=== PATIENT | female | born 1995 | race Caucasian/White ===

== ENCOUNTER 2023-02-08 10:38 | Emergency (ER) | payer OTHER, SELFPAY ==
[2023-02-08 10:49] VITALS: BP 111/72; PULSE 81; RESP 16; TEMP 36.7; O2SAT 97; BMI 26.3
--- NOTE | 2023-02-08 11:13 | XR_ITS ---
WS: [id number] XR ankle LT min 3V* [id number] REASON FOR EXAM: fall, injury FINDINGS: Moderate soft tissue swelling over the lateral malleolus. No fracture identified. Joint spaces of the left ankle are intact and well preserved. XR/XR ankle LT min 3V* [id number] IMPRESSION: Soft tissue swelling over the lateral malleolus with no acute bone or joint abn ormality identified.
--- NOTE | 2023-02-08 13:49 | ED_ITS ---
HPI - Extremity Problem General: Chief complaint: Extremity Injury, Lower Stated complaint: left ankle pain Time Seen by Provider: 02/08/23 11:10 Source: patient Mode of arrival: wheelchair Limitations: no limitations History of Present Illness: Patient presents to the emergency department today accompanied by family for evaluation treatment of multiple injuries sustained after falling last night. Patient admits she had been drinking some alcohol and, while trying to walk up a hill and wet crocs slipped on some uneven rocks causing her right ankle to roll and she to fall forward. Patient has several superficial abrasions and bruises noted to the anterior knees bilaterally and anterior shins. Patient is complaining of left lateral ankle pain with decreased range of motion and minimal to no weightbearing capabilities. She states she did not hit her head when she fell. Review of Systems General: Reports: 10 or more systems reviewed and unremarkable except in HPI and below Musc: Reports: extremity pain, joint pain, joint swelling, joint stiffness and limited range of motion Physical Exam Const: COMMON NORMALS: no acute distress, patient oriented x3 and alert HENMT: COMMON NORMALS: normocephalic, atraumatic and hearing grossly normal bilaterally HEAD & SCALP: normocephalic and atraumatic Eye: COMMON NORMALS: Equal, round and reactive pupils present, EOMs intact bilaterally and conjunctivae normal CONJUNCTIVA: Yes conjunctivae normal PUPIL: Yes Equal, round and reactive pupils present Neck/C-Spine: COMMON NORMALS: full ROM and no JVD Lymph: LYMPHATIC: no lymphadenopathy noted Resp: COMMON NORMALS: normal respiratory effort, No retractions and No use of accessory muscles Cardio: COMMON NORMALS: no JVD and regular rate RATE: regular rate Extremity: NARRATIVE EXTREMITY EXAM: Patient has obvious swelling of the left lateral malleolus. She is tender to palpation to the distal fib without particular tenderness on the proximal fifth metatarsal. No significant bruising in this area but patient does have 1 or 2 small areas of bruising noted to the dorsum of the foot. Patient is able to move the toes on the left foot. She actually demonstrates ability to flex and extend and demonstrate some inversion and eversion of the joint though she indicates pain. Patient with generalized discomfort to the anterior right knee is on palpation without any specific patellar or tibial plateau tenderness. Patient demonstrates flexion extension capabilities of these joints. Neuro: COMMON NORMALS: patient oriented x3 SENSORIUM/ORIENTATION: Yes alert Psych: COMMON NORMALS: mental status grossly normal, Normal thought process present, cooperative and normal affect THOUGHT PROCESS: Normal thought pro cess present Skin: COMMON NORMALS: no rashes or lesions noted and turgor normal NARRATIVE SKIN EXAM: Patient has a couple superficial abrasions noted to the anterior knees without signs of infection or bleeding. Patient has multiple areas of bruising ranging from 1 cm in diameter to up to 3 cm in diameter. GENERAL SKIN EXAM: no rashes or lesions noted and turgor normal Course Vital Signs: Vital signs: Vital Signs Temperature 98.0 F 02/08/23 10:49 Pulse Rate 81 02/08/23 10:49 Respiratory Rate 16 02/08/23 10:49 Blood Pressure 111/72 02/08/23 10:49 Pulse Oximetry 97 02/08/23 10:49 Oxygen Delivery Me thod 02/08/23 10:49 MDM - Extremity (Nontraumatic) Medical Decision Making Patient presents emergency department today for evaluation treatment of left lateral ankle pain. Patient is sustained multiple injuries from her fall last night but, was mostly concerned as she was unable to bear weight and ambulate on the ankle. X-rays negative for any signs of acute fracture but, with the swelling did discuss ankle sprain and need for healing. Patient was put into a ankle brace and given crutches with instructions to remain nonweightbearing for 3 days. She is to continue wearing the brace for 1 more week and should be seen and reevaluated if she is still unable to bear weight and ambulate more comfortably as she may require repeat films to evaluate for potential hairline fractures. Went over at home RICE therapy recommendations. Differential Diagnosis Likely cellulitis (Ankle fracture, ankle sprain, knee contusion, metatarsal fracture) Lab Data Radiology Impressions Ankle X-Ray 02/08/23 11:13 IMPRESSION: Soft tissue swelling over the lateral malleolus with no acute bone or joint abnormality identified. Discharge Plan Discharge Patient Disposition: Home Clinical Impression: Ankle sprain and strain, Contusion, multiple sites Condition: Stable Discharge Orders: Discharge ED (Routine); Ordered 02/08/23 Ordered By: Sandie Vasquez Discharge Diet: Usual diet Discharge Activity: Limit activity as instructed Patient Instructions: Ankle Sprain (ED) Activity Restrictions/Additional Instructions: X-ray today does not show any signs of acute fracture however, with a significant amount of swelling in the location of your injury you most likely have stretched and injured the connective tissues to your ankle. As we discussed, I would like you to wear your ankle brace and use crutches for all weightbearing activity for the next 3 days. After that time, I would like you to continue wearing your ankle brace until next Wednesday. However, if you are having significant improvement and wish to remove your brace for the on Wednesday, you may attempt ambulation if you wish. Until then, I do recommend keeping your foot up and elevated as often as possible. Apply ice to the area of swelling for 15 to 20 minutes at a time. Use Tylenol and ibuprofen for your discomfort. If in 1 week you are not noticing significant improvement with the conservative management of crutches, bracing, and icing, we do recommend you be seen and reevaluated again as you may require repeat films to evaluate for potential hairline fractures. Coding Level of Care Code ED Orthodontic Lab Technician for [facility]
--- NOTE | 2023-02-17 10:32 | DCPLANNER ---
[facility] called patient due to no primary care physician - spoke with patients mother, patient does not live in the area.
== END 2023-02-08 13:55 | disposition home or self-care (01) ==
PROVIDERS: Emergency Provider Physician Assistant
DX: S93.402A Sprain of unspecified ligament of left ankle, initial encounter (principal); S96.912A Strain of unspecified muscle and tendon at ankle and foot level, left foot, initial encounter; S90.32XA Contusion of left foot, initial encounter; S80.02XA Contusion of left knee, initial encounter; S80.01XA Contusion of right knee, initial encounter; W01.0XXA Fall on same level from slipping, tripping and stumbling without subsequent striking against object, initial encounter
CPT/HCPCS: 73610; 99283; E0114